=== PATIENT | male | born 1950 | race Caucasian/White ===

== ENCOUNTER 2020-04-17 12:09 | Outpatient (REF) | payer MEDICARE, SELFPAY ==
[2020-04-17 13:36] LABS: MANUAL DIFF FLAG NO
[2020-04-17 13:40] LABS: Basophils Absolute Auto 0.1 X10*3/uL (0.0-0.2); Basophils Percent Auto 0.6 % (0-2); Eosinophils Absolute Auto 0.2 X10*3/uL (0.0-0.4); Eosinophils Percent Auto 2.7 % (0-4); Hematocrit 39.5 % (42-52); Hemoglobin 12.6 g/dl (14.0-18.0); Imm Gran Abs Auto 0.02 X10*3/uL (0.00-0.03); Imm Gran Pct Auto 0.3 % (0.0-0.4); Lymphocytes Absolute Auto 1.8 X10*3/uL (1.2-4.9); Lymphocytes Percent Auto 22.8 % (20-40); Mean Corpuscular HGB Conc 31.9 g/dl (31.0-36.0); Mean Corpuscular Hemoglobin 28.6 pg (27.0-33.0); Mean Corpuscular Volume 89.6 fL (80-98); Mean Platelet Volume 9.4 fL (9.4-12.4); Monocytes Absolute Auto 0.6 X10*3/uL (0.1-1.2); Monocytes Percent Auto 7.6 % (2-11); Neutrophils Absolute Auto 5.1 X10*3/uL (2.0-8.3); Platelet Count 390 X10*3/uL (160-400); Red Blood Count 4.41 X10*6/uL (4.60-5.80); Red Cell Distribution Width 13.6 % (11.0-16.0); White Blood Count 7.8 X10*3/uL (4.8-10.8)
[2020-04-17 14:24] LABS: Estimated Average Glucose 134 mg/dL; Hemoglobin A1C 151.2091 umol/L; Hemoglobin A1c % 6.3 %
[2020-04-17 14:28] LABS: Creatinine Urine 51.96 mg/dL; Microalbum/Creatinine Ratio Ur 232.8 ug/mg cr
[2020-04-17 15:48] LABS: Alanine Aminotransferase 14 U/L (0-40); Albumin Level 4.3 g/dL (3.5-5.0); Alkaline Phosphatase 87 U/L (39-117); Anion Gap 17 (12-20); Aspartate Amino Transferase 20 U/L (5-37); Bilirubin Total 0.6 mg/dL (0.0-1.0); Blood Urea Nitrogen 47 mg/dL (9-16); Calcium 9.1 mg/dL (8.4-10.2); Carbon Dioxide 18 mmol/L (22-29); Chloride 105 mmol/L (96-108); Cholesterol 79 mg/dL; Estimated Glomerular Filt Rate 56; Glucose Random 136 mg/dL (60-115); Potassium 5.3 mmol/l (3.3-5.1); Sodium 135 mmol/L (135-145)
[2020-04-17 16:11] LABS: Prostate Specific Antigen 8.03 ng/mL (<0.05-4.0); Thyroid Stimulating Hormone 1.03 mIU/mL (0.32-4.0)
== END 2020-04-17 12:10 | disposition home or self-care (01) ==
LOC: HO.10HDL 12:09
PROVIDERS: Visit Provider Internal Medicine
DX: E11.9 Type 2 diabetes mellitus without complications (principal); I10 Essential (primary) hypertension; R53.83 Other fatigue; R63.4 Abnormal weight loss; G20 Parkinson's disease
CPT/HCPCS: 36415; 80053; 82043; 82465; 83036; 84153; 84443; 85025

== ENCOUNTER 2020-04-26 14:08 | Outpatient (REF) | payer MEDICARE, SELFPAY | END 2020-04-26 14:09 | disposition home or self-care (01) | LOC: HO.LNP 14:08 | PROVIDERS: Visit Provider Internal Medicine | DX: Z20.828 Contact with and (suspected) exposure to other viral communicable diseases (principal) | CPT/HCPCS: U0003 ==

== ENCOUNTER → 2020-06-06 10:34 | Outpatient (BNVA) | payer MEDICARE, SELFPAY | PROVIDERS: PCP Internal Medicine; Visit Provider Urology | DX: R33.8 Other retention of urine (principal); C61 Malignant neoplasm of prostate | CPT/HCPCS: 51702; 99212 ==

== ENCOUNTER 2020-06-26 10:37 | Outpatient (REF) | payer MEDICARE, SELFPAY ==
[2020-06-26 13:41] LABS: MANUAL DIFF FLAG NO
[2020-06-26 13:51] LABS: Basophils Percent Auto 0.4 % (0-2); Eosinophils Absolute Auto 0.4 X10*3/uL (0.0-0.4); Eosinophils Percent Auto 4.4 % (0-4); Hematocrit 40.5 % (42-52); Hemoglobin 12.9 g/dl (14.0-18.0); Imm Gran Abs Auto 0.03 X10*3/uL (0.00-0.03); Imm Gran Pct Auto 0.3 % (0.0-0.4); Lymphocytes Absolute Auto 1.7 X10*3/uL (1.2-4.9); Lymphocytes Percent Auto 18.9 % (20-40); Mean Corpuscular HGB Conc 31.9 g/dl (31.0-36.0); Mean Corpuscular Hemoglobin 29.1 pg (27.0-33.0); Mean Corpuscular Volume 91.4 fL (80-98); Mean Platelet Volume 9.9 fL (9.4-12.4); Monocytes Absolute Auto 0.8 X10*3/uL (0.1-1.2); Monocytes Percent Auto 8.2 % (2-11); Neutrophils Absolute Auto 6.2 X10*3/uL (2.0-8.3); Neutrophils Percent Auto 67.8 % (45-73); Platelet Count 329 X10*3/uL (160-400); Red Blood Count 4.43 X10*6/uL (4.60-5.80); Red Cell Distribution Width 13.5 % (11.0-16.0); White Blood Count 9.1 X10*3/uL (4.8-10.8)
[2020-06-26 13:55] LABS: Estimated Average Glucose 120 mg/dL; Hemoglobin A1c % 5.8 %
[2020-06-26 14:13] LABS: Alanine Aminotransferase 9 U/L (0-40); Alkaline Phosphatase 119 U/L (39-117); Anion Gap 16 (12-20); Aspartate Amino Transferase 11 U/L (5-37); Bilirubin Total 0.4 mg/dL (0.0-1.0); Blood Urea Nitrogen 39 mg/dL (9-16); C Reactive Protein 0.64 mg/dL (< or = 0.50); Calcium 9.4 mg/dL (8.4-10.2); Carbon Dioxide 25 mmol/L (22-29); Chloride 103 mmol/L (96-108); Estimated Glomerular Filt Rate 55; Glucose Random 194 mg/dL (60-115); Potassium 4.8 mmol/l (3.3-5.1); Sodium 139 mmol/L (135-145); Total Protein 7.2 g/dL (6.5-8.0)
== END 2020-06-26 10:38 | disposition home or self-care (01) ==
LOC: HO.10HDL 10:37
PROVIDERS: Visit Provider Internal Medicine
DX: E11.22 Type 2 diabetes mellitus with diabetic chronic kidney disease (principal); I12.9 Hypertensive chronic kidney disease with stage 1 through stage 4 chronic kidney disease, or unspecified chronic kidney disease; N18.9 Chronic kidney disease, unspecified; G20 Parkinson's disease; M54.9 Dorsalgia, unspecified
CPT/HCPCS: 36415; 80053; 83036; 85025; 86140

== ENCOUNTER → 2020-08-15 15:45 | Outpatient (BNVA) | payer MEDICARE, SELFPAY | PROVIDERS: PCP Internal Medicine; Visit Provider Urology | DX: Z13.89 Encounter for screening for other disorder (principal) | CPT/HCPCS: Q3014 ==

== ENCOUNTER 2020-08-20 11:08 | Outpatient (REF) | payer MEDICARE, SELFPAY ==
[2020-08-20 12:40] LABS: Glucose Urine UA NEG (NEG); Leukocyte Esterase Urine 3+ (NEG); Nitrite Urine POS (NEG); PH 5.5 (5.0-8.0); UACC Culture Trigger YES; Urine Blood 2+ (NEG); Urine Ketones NEG (NEG); Urine Protein 2+ MG/DL (NEG-TRACE)
[2020-08-20 12:42] LABS: Appearance Urine CLOUDY; Color Urine YELLOW
[2020-08-20 13:07] LABS: Bacteria Urine 2+ /LPF
[2020-08-20 13:13] LABS: Prostate Specific Antigen 12.46 ng/mL (<0.05-4.0)
== END 2020-08-20 11:09 | disposition home or self-care (01) ==
LOC: HO.10HDL 11:08
PROVIDERS: Absent Provider Internal Medicine; Visit Provider Urology
DX: C61 Malignant neoplasm of prostate (principal); N13.8 Other obstructive and reflux uropathy; N40.1 Benign prostatic hyperplasia with lower urinary tract symptoms; R30.0 Dysuria
CPT/HCPCS: 36415; 81001; 81003; 84153; 87086; 87088; 87186

== ENCOUNTER 2020-09-20 14:59 | Outpatient (REF) | payer MEDICARE, SELFPAY ==
[2020-09-20 16:02] LABS: MANUAL DIFF FLAG NO
[2020-09-20 16:06] LABS: Basophils Absolute Auto 0.1 X10*3/uL (0.0-0.2); Basophils Percent Auto 0.5 % (0-2); Eosinophils Absolute Auto 0.3 X10*3/uL (0.0-0.4); Eosinophils Percent Auto 2.7 % (0-4); Hematocrit 43.2 % (42-52); Hemoglobin 13.9 g/dl (14.0-18.0); Imm Gran Abs Auto 0.04 X10*3/uL (0.00-0.03); Imm Gran Pct Auto 0.4 % (0.0-0.4); Lymphocytes Absolute Auto 1.8 X10*3/uL (1.2-4.9); Lymphocytes Percent Auto 15.6 % (20-40); Mean Corpuscular HGB Conc 32.2 g/dl (31.0-36.0); Mean Corpuscular Hemoglobin 28.8 pg (27.0-33.0); Mean Corpuscular Volume 89.4 fL (80-98); Mean Platelet Volume 9.4 fL (9.4-12.4); Monocytes Absolute Auto 0.8 X10*3/uL (0.1-1.2); Monocytes Percent Auto 7.1 % (2-11); Neutrophils Absolute Auto 8.3 X10*3/uL (2.0-8.3); Neutrophils Percent Auto 73.7 % (45-73); Platelet Count 309 X10*3/uL (160-400); Red Blood Count 4.83 X10*6/uL (4.60-5.80); Red Cell Distribution Width 13.2 % (11.0-16.0); White Blood Count 11.3 X10*3/uL (4.8-10.8)
[2020-09-20 16:13] LABS: Estimated Average Glucose 146 mg/dL; Hemoglobin A1c % 6.7 %
[2020-09-20 16:21] LABS: Glucose Urine UA NEG (NEG); Leukocyte Esterase Urine 1+ (NEG); Nitrite Urine NEG (NEG); Specific Gravity - Urine 1.025 (1.005-1.025); UACC Culture Trigger YES; Urine Blood 3+ (NEG); Urine Ketones NEG (NEG); Urine Protein 3+ MG/DL (NEG-TRACE)
[2020-09-20 16:25] LABS: Alanine Aminotransferase 9 U/L (0-40); Albumin Level 4.4 g/dL (3.5-5.0); Alkaline Phosphatase 108 U/L (39-117); Anion Gap 13 (12-20); Aspartate Amino Transferase 20 U/L (5-37); Bilirubin Total 0.8 mg/dL (0.0-1.0); Blood Urea Nitrogen 30 mg/dL (9-16); Calcium 9.6 mg/dL (8.4-10.2); Carbon Dioxide 26 mmol/L (22-29); Chloride 106 mmol/L (96-108); Estimated Glomerular Filt Rate 46; Glucose Random 177 mg/dL (60-115); Potassium 4.8 mmol/L (3.3-5.1); Sodium 140 mmol/L (135-145); Total Protein 7.7 g/dL (6.5-8.0)
[2020-09-20 16:42] LABS: Appearance Urine TURBID; Color Urine RED
[2020-09-20 16:44] LABS: Bacteria Urine 1+ /LPF; RBC Urine TNTC /HPF (0); Squamous Epithelial Cell Urine TRACE /LPF
[2020-09-20 16:47] LABS: Free T4 (Free Thyroxine) 0.95 ng/dL (0.71-1.85); Thyroid Stimulating Hormone 1.04 uIU/mL (0.32-4.0)
== END 2020-09-20 15:00 | disposition home or self-care (01) ==
LOC: HO.LAB 14:59
PROVIDERS: PCP Internal Medicine; Visit Provider Internal Medicine
DX: E11.9 Type 2 diabetes mellitus without complications (principal); G20 Parkinson's disease; R00.2 Palpitations
CPT/HCPCS: 36415; 80053; 81001; 81003; 83036; 84439; 84443; 85025; 87086; 87088; 87186

== ENCOUNTER 2020-11-15 15:19 | Outpatient (REF) | payer MEDICARE, SELFPAY ==
[2020-11-15 17:40] LABS: PSA,Total (Free>4and<10) 4.28 ng/mL (0.00-4.00)
[2020-11-18 11:22] LABS: Free Prostate Spec Ag 0.3 ng/mL; Percent Free Prostate Spec Ag 8 % (calc) (>25); Prostate Specific Ag Total 3.7 ng/mL (< OR = 4.0)
== END 2020-11-15 15:20 | disposition home or self-care (01) ==
LOC: HO.LAB 15:19
PROVIDERS: PCP Internal Medicine; Visit Provider Urology
DX: Z12.5 Encounter for screening for malignant neoplasm of prostate (principal); C61 Malignant neoplasm of prostate; N40.1 Benign prostatic hyperplasia with lower urinary tract symptoms; N13.8 Other obstructive and reflux uropathy
CPT/HCPCS: 36415; 84153; 84154

== ENCOUNTER 2020-11-20 14:29 | Outpatient (REF) | payer MEDICARE, SELFPAY ==
--- NOTE | ~2020-11-20 | XR_ITS ---
EXAMINATION: XR SHOULDER, RIGHT CLINICAL INFORMATION: Right shoulder pain. COMPARISON: None TECHNIQUE: AP external rotation, Grashey, scapular Y, and axillary views of the right shoulder. FINDINGS: There is mild reduction in the right AC and glenohumeral joint space with periarticular spurring and AC joint is noted. No visible acute fracture, dislocation or subluxation seen. XR/XR shoulder RT min 2V IMPRESSION: Mild degenerative changes right AC and glenohumeral joint space. No visible acute fracture or dislocation seen.
== END 2020-11-20 14:30 | disposition home or self-care (01) ==
LOC: HO.XRAY 14:29
PROVIDERS: Absent Provider Internal Medicine; PCP Internal Medicine; Visit Provider Urology
DX: M25.511 Pain in right shoulder (principal); C61 Malignant neoplasm of prostate; N40.1 Benign prostatic hyperplasia with lower urinary tract symptoms; N13.8 Other obstructive and reflux uropathy
CPT/HCPCS: 73030; 99212

== ENCOUNTER 2021-01-02 14:01 | Outpatient (REF) | payer MEDICARE, SELFPAY | END 2021-01-02 14:02 | disposition home or self-care (01) | LOC: HO.LAB 14:01 | PROVIDERS: PCP Internal Medicine; Visit Provider Internal Medicine | DX: Z13.89 Encounter for screening for other disorder (principal) ==

== ENCOUNTER 2021-01-05 10:00 | Outpatient (REF) | payer MEDICARE, SELFPAY ==
[2021-01-06 11:44] LABS: Glucose Urine UA NEG (NEG); Leukocyte Esterase Urine 2+ (NEG); Nitrite Urine POS (NEG); Specific Gravity - Urine 1.015 (1.005-1.025); Urine Blood 1+ (NEG); Urine Ketones NEG (NEG); Urine Protein 2+ MG/DL (NEG-TRACE)
[2021-01-06 12:15] LABS: Appearance Urine CLEAR; Color Urine STRAW
[2021-01-06 13:05] LABS: Bacteria Urine 1+ /LPF; WBC Urine TNTC /HPF (0-4)
== END 2021-01-05 10:01 | disposition home or self-care (01) ==
LOC: HO.LNP 10:00
PROVIDERS: Visit Provider Internal Medicine
DX: R30.0 Dysuria (principal)
CPT/HCPCS: 81001; 81003; 87086; 87147; 87186

== ENCOUNTER → 2021-01-10 10:27 | Outpatient (BNVA) | payer MEDICARE, SELFPAY | PROVIDERS: PCP Internal Medicine; Visit Provider Urology | CPT/HCPCS: Q3014 ==

== ENCOUNTER → 2021-02-11 10:49 | Outpatient (REF) | payer MEDICARE, SELFPAY ==
--- NOTE | ~2021-02-11 | NM_ITS ---
EXAMINATION: NM BONE SCAN OF THE WHOLE BODY CLINICAL INFORMATION: Malignant neoplasm of prostate. Prostate removed 4 years ago. COMPARISON: No previous bone scan is available for comparison. Radiographs of the right shoulder dated 11/20/2020 and of the right hip dated 10/27/2018 are the most recent radiographs available for comparison. CT of the lumbar spine dated 05/13/2018 is available for comparison. TECHNIQUE: Multiple gamma scintillation camera images of the whole body were performed 3 hours following the intravenous administration of 30 mCi Tc-99m MDP. FINDINGS: In the head, no significant abnormalities are present. In the thoracic cage and upper extremities, there is mildly increased activity in the acromioclavicular and sternoclavicular joints bilaterally and in a few periarticular foci in both hands and wrists. Some residual radiopharmaceutical at the injection site in the left forearm is noted. In the spine, there is a minimal thoracolumbar scoliosis with lumbar convexity to the left. There is very mildly increased activity in the lower lumbar spine at the L4-L5 level. This is at the level of spinal fusion hardware partially visualized on radiographs of the right hip dated 10/27/2018. In the pelvis, no significant abnormalities are present. In the lower extremities, there is minimally increased activity in the patellar and medial compartments of both knees and in faint foci in both feet. No other definite bony abnormalities are noted. The urinary bladder and faint visualization of both kidneys are noted. Some left-sided hydronephrosis and prominence of the left ureter is present. NM/NM bone scan whole body IMPRESSION: A few mild nonspecific abnormalities are noted as described above and these are all likely arthritic or traumatic in etiology. None of these abnormalities is strongly suspicious for metastatic disease.
== END ==
LOC: HO.NUCMED 10:49
PROVIDERS: Visit Provider Urology
DX: C61 Malignant neoplasm of prostate (principal); C79.51 Secondary malignant neoplasm of bone
CPT/HCPCS: 51701; 51702; 78306; 99212; A9503

== ENCOUNTER → 2021-02-18 11:03 | Outpatient (BNVA) | payer MEDICARE, SELFPAY | PROVIDERS: PCP Internal Medicine; Visit Provider Urology | DX: N40.1 Benign prostatic hyperplasia with lower urinary tract symptoms (principal); N13.8 Other obstructive and reflux uropathy; C61 Malignant neoplasm of prostate | CPT/HCPCS: 96402; 99212; J9217 ==

== ENCOUNTER → 2021-03-06 11:23 | Outpatient (BNVA) | payer MEDICARE, SELFPAY | PROVIDERS: PCP Internal Medicine; Visit Provider Urology | DX: C61 Malignant neoplasm of prostate (principal); N31.9 Neuromuscular dysfunction of bladder, unspecified | CPT/HCPCS: 51701; 99212 ==

== ENCOUNTER → 2021-03-19 12:34 | Outpatient (BNVA) | payer MEDICARE, SELFPAY | PROVIDERS: PCP Internal Medicine; Visit Provider Urology | DX: N31.9 Neuromuscular dysfunction of bladder, unspecified (principal); C61 Malignant neoplasm of prostate | CPT/HCPCS: Q3014 ==

== ENCOUNTER → 2021-08-15 14:16 | Outpatient (BNVA) | payer MEDICARE, SELFPAY | PROVIDERS: PCP Internal Medicine; Visit Provider Urology | DX: N31.9 Neuromuscular dysfunction of bladder, unspecified (principal); C61 Malignant neoplasm of prostate | CPT/HCPCS: 99212 ==

== ENCOUNTER 2022-03-17 11:50 | Outpatient (REF) | payer MEDICARE, SELFPAY ==
[2022-03-17 13:44] LABS: MANUAL DIFF FLAG NO
[2022-03-17 14:03] LABS: Basophils Absolute Auto 0.1 X10*3/uL (0.0-0.2); Basophils Percent Auto 0.4 % (0-2); Eosinophils Absolute Auto 0.5 X10*3/uL (0.0-0.4); Eosinophils Percent Auto 3.7 % (0-4); Hematocrit 42.7 % (42.0-52.0); Hemoglobin 14.1 g/dl (14.0-18.0); Imm Gran Abs Auto 0.07 X10*3/uL (0.00-0.03); Imm Gran Pct Auto 0.6 % (0.0-0.4); Lymphocytes Absolute Auto 2.2 X10*3/uL (1.2-4.9); Lymphocytes Percent Auto 18.4 % (20-40); Mean Corpuscular Hemoglobin 29.5 pg (27.0-33.0); Mean Corpuscular Volume 89.3 fL (80.0-98.0); Monocytes Absolute Auto 0.8 X10*3/uL (0.1-1.2); Monocytes Percent Auto 6.7 % (2-11); Neutrophils Absolute Auto 8.6 x10*3/uL (2.0-8.3); Neutrophils Percent Auto 70.2 % (45-73); Platelet Count 418 X10*3/uL (160-400); Red Blood Count 4.78 X10*6/uL (4.60-5.80); Red Cell Distribution Width 12.5 % (11.0-16.0); White Blood Count 12.2 X10*3/uL (4.8-10.8)
[2022-03-17 14:14] LABS: Estimated Average Glucose 131 mg/dL; Hemoglobin A1c % 6.2 %
[2022-03-17 14:21] LABS: Alanine Aminotransferase 10 U/L (0-40); Albumin Level 4.4 g/dL (3.5-5.0); Alkaline Phosphatase 92 U/L (39-117); Anion Gap 21 (12-20); Aspartate Amino Transferase 16 U/L (5-37); Bilirubin Total 0.5 mg/dL (0.0-1.0); Blood Urea Nitrogen 21 mg/dL (9-16); Calcium 10.4 mg/dL (8.4-10.2); Carbon Dioxide 22 mmol/L (22-29); Chloride 104 mmol/L (96-108); Cholesterol 127 mg/dL; Estimated Glomerular Filt Rate 45; Glucose Random 187 mg/dL (60-115); Sodium 142 mmol/L (135-145); Total Protein 7.6 g/dL (6.5-8.0)
[2022-03-17 14:42] LABS: Prostate Specific Antigen 1.11 ng/mL (<0.05-4.0)
== END 2022-03-17 11:51 | disposition home or self-care (01) ==
LOC: HO.10HDL 11:50
PROVIDERS: Visit Provider Internal Medicine
DX: Z12.5 Encounter for screening for malignant neoplasm of prostate (principal); E11.9 Type 2 diabetes mellitus without complications; N18.9 Chronic kidney disease, unspecified; G20 Parkinson's disease; I48.91 Unspecified atrial fibrillation
CPT/HCPCS: 36415; 80053; 82465; 83036; 84153; 85025

== ENCOUNTER 2023-03-30 10:00 | Outpatient (REF) | payer MEDICARE, SELFPAY ==
[2023-03-31 13:15] LABS: Appearance Urine Turbid; Color Urine Yellow; Glucose Urine UA >=1000 mg/dL (Negative); Leukocyte Esterase Urine Moderate (2+) (Negative); Nitrite Urine Negative (Negative); Specific Gravity - Urine 1.025 (1.005-1.025); UMIC TRIGGER UACC YES; Urine Blood Large (3+) (Negative); Urine Ketones Negative (Negative); Urine Protein 100 (2+) mg/dL (Neg-Trace)
[2023-03-31 13:27] LABS: Bacteria Urine 4+ (None Seen); Hyaline Casts Urine 0-2 /LPF (0-2); UACC Culture Trigger YES; WBC Clumps Urine Present; WBC Urine >50 /HPF (0-5)
== END 2023-03-30 10:01 | disposition home or self-care (01) ==
LOC: HO.HSH1N 10:00
PROVIDERS: Visit Provider Internal Medicine
DX: R30.0 Dysuria (principal)
CPT/HCPCS: 81001; 87086; 87088; 87186

== ENCOUNTER 2023-03-30 15:03 | Outpatient (REF) | payer MEDICARE, SELFPAY | END 2023-03-30 15:04 | disposition home or self-care (01) | LOC: HO.LNP 15:03 | PROVIDERS: Visit Provider Internal Medicine | DX: Z13.89 Encounter for screening for other disorder (principal) ==

== ENCOUNTER 2024-10-04 10:59 | Outpatient (AMB) | payer MEDICARE, SELFPAY ==
--- NOTE | 2024-10-04 11:00 | MHC.PC.OV ---
Vital Signs 10/04/24 11:19 Height 5 ft 9 in Weight 183 lb BMI 27.0 BP 130/70 Blood Pressure Location Rt brachial Position Sitting Pulse 66 Pulse Source Pulse Oximeter Temp 97.6 F Temp Source Axillary Pulse Oximetry (%) 96 Oxygen Delivery Method Room Air Intake Visit Reasons: Routine - see comments [employer] Required: No Accompanied by: Self / Same As Patient Allergies procaine [From NOVOCAIN] Allergy (Unknown, Verified 10/10/24 19:56) JITTERY Medication List - Last Reconciled 10/10/24 by Sylvester Beltran MD amlodipine 5 mg PO DAILY atorvastatin 80 mg PO BEDTIME blood sugar diagnostic (StrongViewuch Ultra Test strips) As directed carbidopa-levodopa 25-100 mg tabs PO carvedilol 6.25 mg PO BID clopidogrel (Plavix) 75 mg PO DAILY empagliflozin (Jardiance) 25 mg PO DAILY finasteride 5 mg PO DAILY 90 days glipizide 5 mg PO DAILY insulin glargine (Basaglar KwikPen U-100 Insulin) [facility] miscellaneous medical supply ([facility] Incontin Clamp) As directed Tobacco use date assessed: 10/04/24 Fall risk assessment: No Falls in past year Last assessed Fall Risk: 10/04/24 Dental Screening Dental Screen Date: 10/04/24 Did you have a dental visit in the last 12 months?: Yes Did you have a dental problem in the last 6 months where you did not have access to dental care?: No PFSH Medical History Prostate cancer Tubular adenoma Sleep apnea CVA (cerebral vascular accident) Parkinson disease PTSD (post-traumatic stress disorder) HTN (hypertension) Prostate cancer Surgical History History of colonoscopy (~10/18/14) History of tonsillectomy History of back surgery Family History Father Prostate cancer Mother Cancer of ileocecal valve Paternal Grandmother Colon cancer Maternal Aunt Small intestine cancer FH: uterine cancer Pancreatic cancer Other Arterial stenosis Social History Housing: Assisted Living Facility Patient Tobacco Use Status: Former Tobacco user e-Cigarette/Vaping Use: Former Use service: No Current occupational status: retired Cognitive needs: No Hearing needs: No Vision needs: Yes (rx glasses) Questionnaire PHQ-9 Over the last 2 weeks, how often have you been bothered by any of the following problems? 1. Little interest or pleasure in doing things: not at all 2. Feeling down, depressed, or hopeless: not at all 3. Trouble falling or staying asleep, or sleeping too much: not at all 4. Feeling tired or having little energy: not at all 5. Poor appetite or overeating: not at all 6. Feeling bad about yourself - or that you are a failure or have let yourself or your family down: not at all 7. Trouble concentrating on things, such as reading the newspaper or watching television: not at all 8. Moving or speaking so slowly that other people could have noticed. Or the opposite - being so fidgety or restless that you have been moving around a lot more than usual: not at all 9. Thoughts that you would be better off or of hurting yourself in some way: not at all Total score: 0 Source: Developed by Drs. Dillan Olmedo, Xin Kelly, Bo Krishnan and colleagues, with an educational garfield from [employer]. Thrive Questionnaire Date Thrive assessed: 10/04/24 I am a: Patient Within the past 12 months, did the food you bought not last and you didn't have the money to get more?: Never true Within the past 12 months, did you worry whether your food would run out before you got money to buy more?: Never true Do you have trouble paying for medicines?: No Do you have trouble getting transportation to medical appointments?: No Do you have trouble paying your heating and electricity bill?: No Do you have trouble taking care of your child, family member or friend?: No Do you have trouble with day-to-day activities such as bathing, preparing meals, shopping, managing finances, etc.?: No Are you currently unemployed and looking for a job?: No Are you interested in more education?: No THRIVE Score: 0 AUDIT C Alcohol Use Questionnaire (AUDIT-C) 1. How often do you have a drink containing alcohol?: Monthly or less 2. How many drinks containing alcohol do you have on a typical day when you are drinking?: 1 or 2 3. How often do you have six or more drinks on one occasion?: Less than monthly Total Score: 2 Physical exam (Primary Care) Vital Signs: Last Vital Signs Temp 97.6 F 10/04/24 11:19 Pulse 66 10/04/24 11:19 BP 130/70 10/04/24 11:19 Pulse Ox 96 10/04/24 11:19 Oxygen Delivery Method Room Air 10/04/24 11:19 BMI result Body Mass Index 27.0 Tobacco/Smoking Status: Tobacco use Status Tobacco use date assessed 10/04/24 10/04/24 11:03 Patient Tobacco Use Status Former Tobacco user 10/04/24 11:34 e-Cigarette/Vaping Use Former Use 10/04/24 11:34 PHQ-9: PHQ-9 Score PHQ-9: Total score 0 10/04/24 11:34 Thrive Assessment: Date of Thrive Assessment Date Thrive assessed 10/04/24 10/04/24 11:03 Coding Level of Care Code New Pt Level 4 (72336) Complex EM visit Add On G2211 Diagnoses Loss of vision H54.7 Assessment & Plan Assessment & Plan (1) Loss of vision: Code(s): H54.7 - Unspecified visual loss Plan: History of Present Illness The patient is a 73-year-old male presenting with visual disturbances. He reports a sudden change in vision over the last three to four days, describing the experience as aracely to a decrease in screen contrast, with pastel color perception and reduced clarity. These changes have made reading difficult. He is scheduled for an eye examination in two weeks but expresses concern about the acuity of changes and potential underlying causes. The patient has established Parkinson's Disease, significantly affecting his mobility and requiring a wheelchair for long-distance movement. His medical history includes a stroke 4.5 years prior, resulting in persistent right-sided weakness and urinary incontinence managed with a catheter. The patient's diabetes mellitus is controlled with insulin, albeit with concerns regarding recent dosage increases despite stable blood sugar levels. Social History - Resides in assisted living, receiving three meals daily and weekly laundry services. - Previously worked in [employer] and [employer]. - No tobacco use in the last 30 years and denies current substance use. - Discusses dietary habits, including consistent breakfast choices and limited snacks. - Manages medications independently but expresses frustration with pharmacy practices. - Reports no family or children, not . Review of Systems - Neurological: Reports visual disturbances. - Musculoskeletal: Reports right-sided weakness from previous stroke. - Genitourinary: Reports urinary incontinence due to stroke. - Endocrine: Denies issues with blood glucose management beyond discussed insulin dosage. Physical Exam General: Cooperative and healthy appearing Nutritional Appearance: Well nourished Orientation/consciousness: Patient oriented x3 Limitations: No limitations Head: Normal to inspection General: Appearance normal, both eyes and all related structures Neck: Normal visual inspection Chest: Normal palpation of entire chest wall Respiratory: N ormal respiratory effort Neurology: Patient oriented x3, right arm is sketchy, right leg is very bad off, facial difference noted on the right side, sudden loss of vision with pastel colors and lack of clarity. Results Plan The patient will have an ophthalmologic evaluation expedited for newly developed visual disturbances. Parkinson's Disease management remains a priority, with mobility aid support continued. Insulin regimen to be monitored, with reassurance provided concerning current dosage adequacy. A review of medication management practices will be conducted to balance diabetes control and medication-related concerns. Patient was informed and verbally consented to the use of an ambient scribe for clinic note documentation during this visit. Discussion Notes During the visit, we discussed the sudden visual disturbances that the patient is experiencing. I will expedite an ophthalmologic evaluation, likely in [place], to assess potential etiologies due to the acute presentation. Emphasis was placed on the importance of maintaining current medication regimens, specifically insulin therapy, while continuing to evaluate the benefits and any adverse effects. The patient's preferences regarding pharmacy practices and medication management were noted and acknowledged. It was advised to maintain safety measures due to balance issues from Parkinson's and muscle weakness, regularly updating fall prevention guidance. Patient Instructions - Await a call for scheduling your eye examination. - Continue current insulin therapy as directed. - Report any further changes in vision immediately. - Use mobility aids for safety and injury prevention. - Follow dietary routines to support diabetes management. - Schedule transportation for upcoming medical appointments in advance. - Maintain medication regimen and report any adverse effects. Orders: Referrals Ophthalmology Referral Sylvester Beltran MD H54.7 - Unspecified visual loss Medications: Changed From insulin glargine (Basaglar KwikPen U-100 Insulin) 15 units (0.15 mL) subcut QAM 15 mL 3RF To insulin glargine (Basaglar KwikPen U-100 Insulin) 30 units subcut BRENDAM Ama Rice MD
[2024-10-04 11:19] VITALS: BP 130/70; PULSE 66; TEMP 36.4; O2SAT 96; BMI 27.0
--- OUTSIDE RECORDS SUMMARY | 2024-10-04 13:13 | XMS_ITS | Patient Health Record ---
[facility] Address [address] [place] [address] Care Team Providers Care [employer] Fabricator Name Role Phone Dieter Panad MD Primary Care Provider Alex Adams Unavailable [phone] Allergies Allergen (clinical drug ingredient) Drug/Non Drug Allergy documented on EMR Reaction Allergy Type Onset Date Status EPINEPHrine rapid heart rate, sweats Drug Allergy Inactive Novocain Unknown Drug Allergy Active Reason For Referral No Information Medications Medication SIG (Take, Route, Frequency, Duration) Notes Start Date End Date Status Extra Depth Orthopedic Shoes (1 Pair) with Customized Heat Molded Multidensity Innersoles (3 Pair) as directed Dx: NIDDM/Polyneuropathy (E11.42), Hammertoe Foot Deformity (M20.41,M20.42), Preulcerative Skin Lesion(s) (L85.1 Active zzzCompression Stockings 20-30mm Hg . . . for . 08/04/2013 Active amLODIPine Besylate Active clonazePAM bid Not-Takin g Lisinopril 40 MG 1 tablet Orally Once a day Not-Taking Ketoconazole 1 % Externally Ac tive Simvastatin 20 MG 1 tablet in the even ing Orally Once a day for 30 day(s) Active metFORMIN HCl ER 500 MG 1tab Orally Once a day Active Atorvastatin Calcium Active Plavix Not-Taking Levodopa Not-Taking glipiZIDE 10 MG 1 tablet Orally Twic e a day Active Carbidopa-Levodopa A ctive Clopidogrel Bisulfate Not-Taking Immunizations Vaccine Route Administration Date Status Comme nts COVID-19 Pfizer BioNTech Vaccine Unknown 09/07/2020 Administered COVID-19 Pfizer BioNTech Vaccine Unknown 09/28/2020 Administered 1st 08/31/2020 Influenza Unknown 02/20/2015 Administered Influenza Unknown 02/20/2015 Administered Influenza Unknown 03/14/2015 Administered Influenza Unknown 03/15/2017 Administered Influenza Unknown 02/18/2021 Administered Pneumococcal Unknown 05/01/2010 Administered Social History Tobacco Use: Social History Observation Description Date Details (start date - stop date) Never Smoker NA - NA Tobacco Use/Smoking Question Answer Notes Are you a: nonsmoker Additional Findings: Tobacco Non-User Current no n-smoker Alcohol Screen Question Answer Notes Did you have a drink containing alcohol in the p ast year? No Points 0 Interpretation Negative Tobacco use other than smoking: Question Answer Notes Are you an other tobacco user? No Problems Problem Type SNOMED Code ICD Code Onset Dates Problem Status W/U Status Risk Notes Problem Acquired hammer toe of right foot (7080607409188937 ) Other hammer toe(s) (acquired), right foot (M20.41) Active confirmed Problem Acquired hammer toe of left foot (5982675908923474 ) Other hammer toe(s) (acquired), left foot (M20.42) Active confirmed Problem Polyneuropathy due to type 2 diabetes mellitus (313784869) Type 2 diabetes mellitus with diabetic polyneuropathy (E11.42) Active confirmed Plan Of Treatment Pending Test Test Name Order Date Hemoglobin A1c 03/08/2015 87267-ZNFHOOW NAIL, 6 OR MORE 12/25/2014 47134-CYYDNYU NAIL, 6 OR MORE 03/08/2015 55144-CSNTKAY NAIL, 6 OR MORE 05/15/2014 28268-HXKIHYC NAIL, 6 OR MORE 08/10/2014 81180-QJOQPIX NAIL, 6 OR MORE 10/19/2014 25414-VJBGSNS NAIL, 6 OR MORE 09/20/2012 90384-XKZMRGJ NAIL, 6 OR MORE 12/20/2012 81307-XXONXRE NAIL, 6 OR MORE 03/02/2013 73234-DSPJTIW NAIL, 6 OR MORE 05/22/2013 00170-BXALERP NAIL, 6 OR MORE 08/04/2013 45792-WNNRHMK NAIL, 6 OR MORE 10/09/2013 16882-MJLRYTY NAIL, 6 OR MORE 12/11/2013 38097-QFZHEHE NAIL, 6 OR MORE 03/06/2014 49029-HWWIBQC NAIL, 6 OR MORE 08/22/2015 07932-KNWHHYD NAIL, 6 OR MORE 11/08/2015 92786-MXUJKWC NAIL, 6 OR MORE 01/12/2017 13322-EFQUMJU NAIL, 6 OR MORE 09/14/2017 17146-NZAIGQC NAIL, 6 OR MORE 12/14/2017 92862-WVGGERZ NAIL, 6 OR MORE 11/25/2018 37567-EGKHWUT NAIL, 6 OR MORE 03/03/2019 42590-DQWURYN NAIL, 6 OR MORE 05/19/2019 18300-WAYZXJF NAIL, 6 OR MORE 10/31/2020 85131-WPXBHEA NAIL, 6 OR MORE 02/18/2021 39588-QCTAZZQ NAIL, 6 OR MORE 11/20/2021 99799-Vkfhsjfo Plate 10/31/2020 00174-Oorznrhd Plate 08/10/2014 30849-Qrcuwegb Plate 12/14/2017 04999-Sbpjxgfb Plate 08/22/2015 36885-Boidalqb Plate 03/06/2014 18781-Mmafjglt Plate 10/09/2013 33938-Cratdbgd Plate 10/19/2014 35049-[place] Plate 12/25/2014 82451-Xhioyvhc Plate 03/08/2015 34723-Pmdnopgz Plate Each Additional 78320-Pavmtvcp Plate Each Additional 43161 I&D ABSCESS- SIMPLE,SINGLE 015 32831-JIXD SKIN LESIONS, 2 TO 4 12/26/19 15 28841-OIQB SKIN LESIONS, 2 TO 4 03/08/20 15 13858-VFIO SKIN LESIONS, 2 TO 4 10/20/19 15 65782-PVGF SKIN LESIONS, 2 TO 4 08/10/19 15 93177-FVNJ SKIN LESIONS, 2 TO 4 05/15/20 14 82326-TCCU SKIN LESIONS, 2 TO 4 10/10/19 14 77352-AQNA SKIN LESIONS, 2 TO 4 12/12/19 14 57187-EZYR SKIN LESIONS, 2 TO 4 09/21/19 13 69558-XCOY SKIN LESIONS, 2 TO 4 03/06/20 14 97796-YEOB SKIN LESIONS, 2 TO 4 08/04/19 14 12036-QXDE SKIN LESIONS, 2 TO 4 05/22/20 13 52550-OHZZ SKIN LESIONS, 2 TO 4 03/02/20 13 85672-ZRSM SKIN LESIONS, 2 TO 4 12/21/19 13 09450-FEPD SKIN LESIONS, 2 TO 4 08/22/19 16 31796-YWRV SKIN LESIONS, 2 TO 4 09/15/19 18 55791-VIII SKIN LESIONS, 2 TO 4 11/08/19 16 08879-VDST SKIN LESIONS, 2 TO 4 01/13/20 17 46326-TTNK SKIN LESIONS, 2 TO 4 12/15/19 18 35752-OODU SKIN LESIONS, 2 TO 4 03/03/20 19 75200-USQJ SKIN LESIONS, 2 TO 4 11/26/19 19 38807-KZGE SKIN LESIONS, 2 TO 4 02/19/20 21 33364-QWJY SKIN LESIONS, 2 TO 4 11/01/19 21 99936-XRFQ SKIN LESIONS, 2 TO 4 05/19/20 19 44276-TXXL SKIN LESIONS, 2 TO 4 11/21/19 22 06070-Xmzc. Subungual Hematoma 1 Insurance Providers Payer Name Payer Address Payer Phone Subscriber Number Group Number Insured Name Patient Relationship to Insured Coverage Start Date Coverage End Date Medicare National Govt S[employer] [address] [place] [address] [id number] Jamil Catalan Jr Self - patient is the insured 0 [employer] [address] [place] [address] [id number] Jamil Catalan Jr Self - patient is the insured 5 Medical (General) History Medical History History ICD Code back, hip, knee pain chicken pox Diabetic hypercholesterolemia high blood pressure macular degeneration measles mumps neuropathy Parkinsons prostate cancer raynauds syndrome Surgical History Surgery Date(Month/Year) LS-S1 07/1988 L3-L4 11/2007 tooth extraction 02/2014 spinal fusion 07/15/18 Hospitalization History Reason Date(Month/Year) PSA biopsy 04/2013 [facility] Spinal stenosis 05/2016 [facility] [place] 11/26/2017 [facility] 11/27/17
--- OUTSIDE RECORDS SUMMARY | 2024-10-04 13:13 | XMS_ITS | Clinical Summary ---
Author Organization [facility] [employer] Address [address] [place] [address] Phone Care Team Providers Care Brand Ambassador Promotional Model Name Role Phone Dieter Panda MD Primary Care Provider [phone] Allergies No known active allergies Medications amLODIPine (NORVASC) 2.5 mg tablet Take 1 Tablet by mouth daily. Active aspirin 81 mg EC tablet Take 1 Tablet by mouth daily. Active atorvastatin (LIPITOR) 80 mg tablet Take 1 Tablet by mouth daily. Active carbidopa-levodo pa (SINEMET) 25-100 mg per tablet Take 1 Tablet by mouth 4 times daily. Active carvediloL (COREG) 6.25 mg tablet Take 1 Tablet by mouth 2 times daily (with meals). Active clopidogreL (PLAVIX) 75 mg tablet Take 1 Tablet by mouth daily. Active empagliflozin (Jardiance) 10 mg tablet Active finasteride (PROSCAR) 5 mg tablet Take 1 Tablet by mouth daily. Active glipiZIDE (GLUCOTROL) 5 mg tablet Take 1 Tablet by mouth 2 times daily (before meals). Active glucose blood (Blood Glucose Test) test strip by In Vitro route. Active insulin glargine,hum.rec .anlog (INSULIN GLARGINE SUBQ) Inject into the skin daily. Active OXYBUTYNIN CHLORIDE ORAL Take 10 mg by mouth daily. Active SITagliptin phosphate (Januvia) 100 mg tablet Take 1 Tablet by mouth 2 times daily. Active dulaglutide (Trulicity) 1.5 mg/0.5 mL pen injector injection Inject 0.5 mL (1.5 mg total) under the skin every 7 (seven) days. Active Active Problems Problem Noted Date Diagnosed Date Bradycardia 02/23/2024 Chest pain 02/23/2024 CVA (cerebral vascular accident) ([facility] V24, [facility] V28) 02/23/2024 Multiple vessel coronary artery disease 02/23/20 24 Assessment & Plan (06/21/2024 2:20 PM EST): See NSTEMI plan. Orders: Lipid panel; Future NSTEMI (non-ST elevated myoc ardial infarction) ([facility] V24, [facility] V28) 02/23/2024 Assessment & Plan (06/21/2024 2:20 PM EST): Patient with NSTEMI in January 2024 with PCI of the ramus intermediate artery. He is to continue aspirin indefinitely and Plavix for a year postintervention. Today he denies any chest pain or shortness of breath. He continues on aspirin, Plavix, atorvastatin, amlodipine, carvedilol and Jardiance. Patient advised to seek emergency medical attention by calling 911 if they were to develop severe dyspnea, chest pain that did not resolve with rest or nitroglycerin, or if they were to faint. Orders: Hemoglobin A1c; Future Hemoglobin A1c; Future Essential hypertension 02/21/2024 Assessment & Plan (06/21/2024 2:20 PM EST): Blood pressure is well-controlled today, 124/76, continue on current antihypertensive medication regimen. PAF (paroxysmal atrial fibri llation) ([facility] V24, [facility] V28) 02/21/2024 Assessment & Plan (06/21/2024 2:20 PM EST): Patient with question of paroxysmal atrial fibrillation, it was noted in his chart in his past with no evidence of this. As outlined above, he had previous outpatient testing that did not indicate any atrial fibrillation nor was it noted during his hospitalization. With his vague complaints of a sensation occurring in his chest approximately weekly and history of CVA, will have him complete a 30-day monitor to assess for any evidence of atrial fibrillation. If it is noted will restart anticoagulation. Orders: ECG 12 lead Cardiac event monitor; Future Palpitations 02/21/2024 Pure hypercholesterolemia, unspecified 4 Assessment & Plan (06/21/2024 2:20 PM EST): Continue on atorvastatin 80 mg daily. Will update lipid panel. 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, not elsewhere classified Parkinson's disease with dys kinesia, without mention of fluctuations ([facility] V24, [facility] V28) DX:Parkinson's disease with dyskinesia, without mention of fluctuations ([facility]) Impacted cerumen of left ear DX: Impacted cerumen of left ear Unspecified urinary incontinence DX:Unspecified urinary incontinence Chronic kidney disease, stag e 3 ([facility] V24, [facility] V28) DX:Chronic kidney disease, s tage 3 ([facility]) Unilateral primary osteoarth ritis, right hip DX:Unilateral primary osteoa rthritis, right hip Trochanteric bursitis DX:Trochan teric bursitis Spinal stenosis, lumbar rob on without neurogenic claudication DX:Spinal stenosis, lumbar r egion without neurogenic claudication Urinary tract infection, sit e not specified DX:Urinary tract infection, site not specified Flexural eczema DX:Flexural ecze ma Seborrhea capitis DX:Seborrhea c apitis Obesity due to excess calories D X:Obesity due to excess calories Precordial pain DX:Precordial pa in Spinal stenosis, cervical region DX:Spinal stenosis, cervical region Constipation DX:Constipation Low back pain DX:Low back pain Type 2 diabetes mellitus wit hout complications ([facility] V24, [facility] V28) DX:Type 2 oh betes mellitus without complications ([facility]) Malignant neoplasm of prosta te ([facility] V24, [facility] V28) DX:Malignant neoplasm of pro state ([facility]) Idiopathic progressive neuropathy DX:Idiopathic progressive neuropathy Status post insertion of ynes g eluting coronary artery stent DX:Status post insertion of drug eluting coronary artery stent Diabetes ([facility] V24, [facility] V28) DX:Diabetes ([facility]) Social History Tobacco Use Types Packs/Day Years Used Date Smoking Tobacco: Never Smokeless Tobacco: Never Alcohol Use Standard Drinks/Week Comments Never 0 (1 standard drink = 0.6 oz pur e alcohol) Sex and Gender Information Value Date Recorded Sex Assigned at Not on file Legal Sex Male 7:57 AM EST Gender Identity Not on file Sexual Orientation Not on file Obstetrics History Last Filed Vital Signs Vital Sign Reading Time Taken Comments Blood Pressure 124/76 06/21/2024 12:41 PM EST Pulse 75 06/21/2024 12:41 PM EST Temperature - - Respiratory Rate - - Oxygen Saturation 94% 06/21/2024 12:41 PM EST Inhaled Oxygen Concentration - - Weight 83 kg (183 lb) 06/21/2024 12:41 PM EST Height 182.9 cm (6') 06/21/2024 12:41 PM EST Body Mass Index 24.82 06/21/2024 12:41 PM EST Plan of Treatment Upcoming Encounters Date Type Department Care Team (Late st Contact Info) Description 10/30/2024 2:30 PM EDT Ancillary Procedure [facility] Cardiology [facility] [address] [place] [address] 11/14/2024 7:40 AM EDT Office Visit [facility] Cardiology [facility] [address] [place] [phone] Juliane Perea NP [address] [place] [address] [place] [address] Health Maintenance Due Date Last Done Comments Diabetes: Annual Foot Exam 12/17/1959 Diabetes: Annual Retina Eye Exam 12/17/1959 DTaP,Tdap,and Td Vaccines (1 - Tdap) 1968 Zoster Vaccines (1 of 2) 1968 RSV Immunization Adult Patients (1 - Risk 60-74 years 1-dose series) 2009 Pneumococcal Vaccine: 50+ Years (3 of 3 - PPSV23, PCV20 or PCV21) 05/26/2020 03/31/2020, 05/01/2010 Cholesterol Screening (Lipid Panel) 05/17/2022 Colorectal Cancer Screening: Colonoscopy 05/17/2022 Depression Screening 05/17/2022 Falls Risk Assessment 05/17/2022 Hepatitis C Screening 05/17/2022 Medicare Annual Wellness Visit 05/17/2022 Social Influencers of Health Screening 05/17/2022 Diabetes: Annual GFR (Glomerular Filtration Rate) 01/13/2023 01/13/2022, 07/12/2018 COVID-19 Vaccine ( season) 2024 10/20/2021, 03/28/2021, 09/28/2020, Additional history exists Hypertension/CHF/CAD Annual BMP Blood Test 03/26/2024 01/13/2022, 07/12/2018 Diabetes: Annual Urine Albumin-Creatinine Ratio (uACR) 06/21/2024 Diabetes: Blood Sugar Control Test (HGBA1C) 06/21/2024 Influenza Vaccine (Season Ended) 2025 06/18/2022, 02/18/2021, 03/31/2020, Additional history exists HIB Vaccines Aged Out No longer eligi ble based on patient's age to complete this topic HPV Vaccines Aged Out No longer eligi ble based on patient's age to complete this topic Hepatitis A Vaccines Aged Out No long er eligible based on patient's age to complete this topic Hepatitis B Vaccines Aged Out No long er eligible based on patient's age to complete this topic IPV Vaccines Aged Out No longer eligi ble based on patient's age to complete this topic MMR Vaccines Aged Out No longer eligi ble based on patient's age to complete this topic Meningococcal ACWY Vaccine Aged Out N o longer eligible based on patient's age to complete this topic Meningococcal B Vaccine Aged Out No l onger eligible based on patient's age to complete this topic RSV Immunization Patients Under 20 months Aged Out No longer eligible based on patient's age to complete this topic Varicella Vaccines Aged Out No longer eligible based on patient's age to complete this topic Insurance MEDICARE Advance Directives Documents on File Type Date Recorded 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
== END 2024-10-04 13:29 | disposition home or self-care (01) ==
LOC: HO.HMCHD 10:59
PROVIDERS: PCP Internal Medicine; Visit Provider Internal Medicine
DX: H54.7 Unspecified visual loss (principal)

== ENCOUNTER → 2024-10-04 10:59 | Outpatient (BNVA) | payer MEDICARE, SELFPAY | PROVIDERS: PCP Internal Medicine; Visit Provider Internal Medicine | DX: H54.7 Unspecified visual loss (principal) | CPT/HCPCS: 99202 ==

== ENCOUNTER 2024-11-22 11:44 | Outpatient (AMB) | payer MEDICARE, SELFPAY ==
--- NOTE | 2024-11-22 10:27 | MHC.PC.OV ---
Intake Visit Reasons: visit - see comments Allergies procaine [From NOVOCAIN] Allergy (Unknown, Verified 10/10/24 19:56) JITTERY Tobacco use date assessed: 10/04/24 Dental Screening Dental Screen Date: 10/04/24 [facility] Medical History Prostate cancer Tubular adenoma Sleep apnea CVA (cerebral vascular accident) Parkinson disease PTSD (post-traumatic stress disorder) HTN (hypertension) Prostate cancer Surgical History History of colonoscopy (~10/18/14) History of tonsillectomy History of back surgery Family History Father Prostate cancer Mother Cancer of ileocecal valve Paternal Grandmother Colon cancer Maternal Aunt Small intestine cancer FH: uterine cancer Pancreatic cancer Other Arterial stenosis Social History Housing: Assisted Living Facility Patient Tobacco Use Status: Former Tobacco user e-Cigarette/Vaping Use: Former Use service: No Current occupational status: retired Cognitive needs: No Hearing needs: No Vision needs: Yes (rx glasses) Questionnaire Thrive Questionnaire Date Thrive assessed: 10/04/24 Physical exam (Primary Care) Tobacco/Smoking Status: Tobacco use Status Tobacco use date assessed 10/04/24 10/04/24 11:03 Patient Tobacco Use Status Former Tobacco user 10/04/24 11:34 e-Cigarette/Vaping Use Former Use 10/04/24 11:34 Thrive Assessment: Date of Thrive Assessment Date Thrive assessed 10/04/24 10/04/24 11:03 Coding
[2024-11-22 11:46] VITALS: BP 124/76; PULSE 75; TEMP 36.4; O2SAT 96; BMI 27.2
--- NOTE | 2024-11-22 11:46 | A.OFFPC_ITS ---
Vital Signs 11/22/24 11:46 Height 5 ft 9 in Weight 184 lb BMI 27.2 BP 124/76 Blood Pressure Location Rt brachial Position Sitting Pulse 75 Pulse Source Pulse Oximeter Temp 97.6 F Temp Source Axillary Pulse Oximetry (%) 96 Oxygen Delivery Method Room Air Intake Visit Reasons: visit - see comments Assistant Clinical Nurse Manager Required: No Accompanied by: Self / Same As Patient Allergies procaine [From NOVOCAIN] Allergy (Unknown, Verified 11/24/24 12:39) JITTERY Medication List - Last Reconciled 11/24/24 by Sylvester Beltran MD amlodipine 5 mg PO DAILY atorvastatin 80 mg PO BEDTIME blood sugar diagnostic ([facility] Ultra Test strips) As directed carbidopa-levodopa 25-100 mg 1 tab PO QID carvedilol 6.25 mg PO BID clopidogrel 75 mg PO DAILY empagliflozin (Jardiance) 25 mg PO DAILY finasteride 5 mg PO DAILY 90 days glipizide 5 mg PO DAILY insulin glargine (Basaglar KwikPen U-100 Insulin) 30 units subcut QAM meloxicam 15 mg PO DAILY miscellaneous medical supply ([employer] [place] Incontin Clamp) As directed Tobacco use date assessed: 11/22/24 Fall risk assessment: No Falls in past year Last assessed Fall Risk: 11/22/24 Dental Screening Dental Screen Date: 11/22/24 Did you have a dental visit in the last 12 months?: Yes Did you have a dental problem in the last 6 months where you did not have access to dental care?: No PFSH Medical History Prostate cancer Tubular adenoma Sleep apnea CVA (cerebral vascular accident) Parkinson disease PTSD (post-traumatic stress disorder) HTN (hypertension) Prostate cancer Surgical History History of colonoscopy (~10/18/14) History of tonsillectomy History of back surgery Family History Father Prostate cancer Mother Cancer of ileocecal valve Paternal Grandmother Colon cancer Maternal Aunt Small intestine cancer FH: uterine cancer Pancreatic cancer Other Arterial stenosis Social History Housing: Assisted Living Facility Patient Tobacco Use Status: Former Tobacco user e-Cigarette/Vaping Use: Former Use service: No Current occupational status: retired Cognitive needs: Yes (wheelchair) Hearing needs: No Vision needs: Yes (rx glasses) Questionnaire PHQ-9 Over the last 2 weeks, how often have you been bothered by any of the following problems? 1. Little interest or pleasure in doing things: not at all 2. Feeling down, depressed, or hopeless: not at all 3. Trouble falling or staying asleep, or sleeping too much: not at all 4. Feeling tired or having little energy: not at all 5. Poor appetite or overeating: not at all 6. Feeling bad about yourself - or that you are a failure or have let yourself or your family down: not at all 7. Trouble concentrating on things, such as reading the newspaper or watching television: not at all 8. Moving or speaking so slowly that other people could have noticed. Or the opposite - being so fidgety or restless that you have been moving around a lot more than usual: not at all 9. Thoughts that you would be better off or of hurting yourself in some way: not at all Total score: 0 Source: Developed by Drs. Dillan Olmedo, Xin Kelly, Bo Krishnan and colleagues, with an educational garfield from [employer]. Thrive Questionnaire Date Thrive assessed: 10/04/24 I am a: Patient Within the past 12 months, did the food you bought not last and you didn't have the money to get more?: Never true Within the past 12 months, did you worry whether your food would run out before you got money to buy more?: Never true Do you have trouble paying for medicines?: No Do you have trouble getting transportation to medical appointments?: No Do you have trouble paying your heating and electricity bill?: No Do you have trouble taking care of your child, family member or friend?: No Do you have trouble with day-to-day activities such as bathing, preparing meals, shopping, managing finances, etc.?: No Are you currently unemployed and looking for a job?: No Are you interested in more education?: No THRIVE Score: 0 AUDIT C Alcohol Use Questionnaire (AUDIT-C) 1. How often do you have a drink containing alcohol?: Monthly or less 2. How many drinks containing alcohol do you have on a typical day when you are drinking?: 1 or 2 3. How often do you have six or more drinks on one occasion?: Less than monthly Total Score: 2 MAICOL-7 AMB Questionnaire MAICOL-7 Date MAICOL - 7 assessed: 11/22/24 Feeling nervous, anxious, or on edge: 0 = Not at all Not being able to stop or control worryin = Not at all Worrying too much about different things: 0 = Not at all Trouble relaxin = Not at all Being so restless that it is hard to sit still: 0 = Not at all Becoming easily annoyed or irritable: 0 = Not at all Feeling afraid as if something awful might happen: 0 = Not at all Total MAICOL-7 score (0-4 normal; 5-9 mild; 10-14 moderate; 15-21 severe): 0 Source: Developed by Drs. Dillan Olmedo, Xin Kelly, Bo Krishnan and colleagues, with an educational garfield from [employer]. Physical exam (Primary Care) Vital Signs: Last Vital Signs Temp 97.6 F 11/22/24 11:46 Pulse 75 11/22/24 11:46 BP 124/76 11/22/24 11:46 Pulse Ox 96 11/22/24 11:46 Oxygen Delivery Method Room Air 11/22/24 11:46 BMI result Body Mass Index 27.2 Tobacco/Smoking Status: Tobacco use Status Tobacco use date assessed 11/22/24 11/22/24 11:49 Patient Tobacco Use Status Former Tobacco user 11/22/24 11:49 e-Cigarette/Vaping Use Former Use 11/22/24 11:49 PHQ-9: PHQ-9 Score PHQ-9: Total score 0 11/22/24 11:49 Thrive Assessment: Date of Thrive Assessment Date Thrive assessed 10/04/24 11/22/24 11:49 Coding Level of Care Code Est Pt Level 4 (58920) Complex EM visit Add On G2211 Diagnoses DM (diabetes mellitus) type II uncontrolled with eye manifestation Diabetes mellitus E11.9 Assessment & Plan Assessment & Plan (1) DM (diabetes mellitus) type II uncontrolled with eye manifestation: Plan: BW has been requested. Will call with the results (2) Diabetes mellitus: Code(s): E11.9 - Type 2 diabetes mellitus without complications Plan History of Present Illness - The patient is a 73-year-old male presenting with right arm and shoulder pain. - Approximately five weeks ago, the patient incurred an injury to his right arm while lifting himself from a recliner. - Persistent pain has been noted, particularly with certain movements, and the condition has radiated to the shoulder and scapular area. - Suggestions of tendon inflammation lead to a provisional diagnosis of tendinitis. - The patient is also experiencing vision changes. - Despite undergoing recent optometric evaluation, the patient continues to notice gradual vision degeneration. 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 - Additionally, hyperglycemia remains a concern. - Nocturnal blood glucose levels reached 350 mg/dL recently. - Further assessment of the glycemic control is deemed necessary through an A1c test. Social History - The patient?s social determinants of health, such as housing, employment, education, family status, or substance use, were not explicitly discussed. Review of Systems - Eyes: Reports vision changes; glasses to be picked up. - Musculoskeletal: Reports right arm and shoulder pain, particularly with motion, suggestive of musculoskeletal strain. - Endocrine: Reports elevated nighttime blood sugar level. Physical Exam General: Cooperative and healthy appearing Nutritional Appearance: Well nourished Orientation/consciousness: Patient oriented x3 Limitations: No limitations Head: Normal to inspection General: Appearance normal, both eyes and all related structures Neck: Normal visual inspection Chest: Normal palpation of entire chest wall Respiratory: N ormal respiratory effort Neurology: Patient oriented x3, but reports pain and discomfort in the right arm. Full range of motion is present, indicating no rupture, but there is a possible strain or tendinitis. Results - Labs: A1c test pending as discussed for hyperglycemia management. Plan 1. Right Arm Pain, Possible Tendinitis - Prescribe meloxicam for one week; caution with arm movements advised. 2. Vision Changes - Recommend follow-up with an inspector conveyor line; glasses collection reminder given. 3. Hyperglycemia - Order A1c testing; monitor current blood sugar control strategies. Discussion Notes I discussed with Mr. Sandoval the differential diagnosis of right arm pain, with observations pointing towards tendinitis. I explained that the decision to initiate meloxicam was based on its anti-inflammatory effects to alleviate discomfort. We reviewed the importance of completing a visit with an inspector conveyor line for a comprehensive evaluation of his vision changes, distinguishing it from the scope of optometric care. We also reviewed the need for an A1c test to better understand his hyperglycemia readings. I advised on the benefits and outlined potential side effects of meloxicam and ensured the patient understood the change in his care approach. Patient Instructions - Take meloxicam as prescribed for right arm pain. - Schedule an appointment with the inspector conveyor line for further evaluation on [employer]. 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 - Obtain a lab test for A1c to assess blood sugar levels. - Avoid movements that provoke arm pain. - Monitor blood glucose levels and record any unusual readings. Orders: Orders Complete Blood Count no Diff 11/22/24 E11.9 - Type 2 diabetes mellitus without complications Lipid Panel 11/22/24 E11.9 - Type 2 diabetes mellitus without complications Hemoglobin A1c 11/22/24 E11.9 - Type 2 diabetes mellitus without complications UA and rflx microscopic 11/22/24 E11.9 - Type 2 diabetes mellitus without complications Basic Metabolic Panel 11/22/24 E11.9 - Type 2 diabetes mellitus without complications Liver Panel 11/22/24 E11.9 - Type 2 diabetes mellitus without complications Thyroid Stimulating Hormone 11/22/24 E11.9 - Type 2 diabetes mellitus without complications Microalbumin, Random (w Creat) 11/22/24 E11.9 - Type 2 diabetes mellitus without complications Referrals Cologuard Test Z12.11 - Encounter for screening for malignant neoplasm of colon Medications: New meloxicam 15 mg PO DAILY 14 tabs 0RF
--- OUTSIDE RECORDS SUMMARY | 2024-11-22 13:28 | XMS_ITS | Clinical Summary ---
Author Organization [facility] [employer] Address [address] [place] [address] Phone Care Team Providers Care Primary Care Nurse Practitioner Name Role Phone Dieter Panda MD Primary Care Provider [phone] Allergies No known active allergies Medications amLODIPine [...] daily. Active empagliflozin (Jardiance) 10 mg tablet Take 1 tablet (10 mg total) by mouth 1 (one) time each day in the morning. Active finasteride (PROSCAR) 5 mg tablet Take [...] Chest pain 02/23/2024 CVA (cerebral vascular accident) ([facility] V24, [facility] V28) 02/23/2024 Multiple vessel coronary artery disease 02/23/20 24 Assessment & Plan (06/21/2024 2:20 PM EST): See NSTEMI plan. Orders: Lipid panel; Future NSTEMI (non-ST elevated myoc ardial infarction) ([facility] V24, [facility] V28) 02/23/2024 Assessment & Plan (06/21/2024 2:20 [...] Future Essential hypertension 02/21/2024 Assessment & Plan (11/14/2024 8:58 AM EDT): Blood pressure is well-controlled today, continue on current antihypertensive medication regimen. Assessment & Plan (06/21/2024 2:20 PM EST): Blood pressure is well-controlled today, 124/76, continue on current antihypertensive medication regimen. PAF (paroxysmal atrial fibri llation) ([facility] V24, [facility] V28) 02/21/2024 Assessment & Plan (06/21/2024 2:20 [...] Pure hypercholesterolemia, unspecified 4 Assessment & Plan (11/14/2024 8:58 AM EDT): Continues on atorvastatin 80 mg daily, will update lipid panel. Assessment & Plan (06/21/2024 2:20 PM EST): Continue on atorvastatin 80 mg daily. Will update lipid panel. Orders: Lipid panel; Future Encounters Date Type Department Care Team Description 11/14/2024 7:40 AM EDT Office Visit [facility] Cardiology [facility] [address] [place] [id number] Juliane Perea NP PAC (premature atrial contraction) (Primary Dx); Coronary artery disease involving twenty-nine palms heart, unspecified vessel or lesion type, unspecified whether angina present; Essential hypertension; Pure hypercholesterolemia , unspecified 11/14/2024 Telephone [facility] [address] [place] [phone] Juliane Perea NP 10/30/2024 2:30 PM EDT Ancillary Procedure [facility] Cardiology [facility] [address] [place] [address] Multiple vessel coronary artery disease; PAC (premature atrial contraction) from Last 3 Months Medical History Medical History Date Comments Flaccid neuropathic bladder, 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, not elsewhere classified Parkinson's disease with dys kinesia, without mention of fluctuations (CMS/HCC V24, CMS/HCC V28) DX:Parkinson's disease with dyskinesia, without mention of fluctuations (HCC) Impacted cerumen of left ear DX: Impacted cerumen of left ear Unspecified urinary incontinence DX:Unspecified urinary incontinence Chronic kidney disease, stag e 3 (CMS/HCC V24, [facility] V28) DX:Chronic kidney disease, s tage 3 ([facility]) Unilateral primary osteoarth ritis, right hip DX:Unilateral [...] Type 2 diabetes mellitus wit hout complications ([facility] V24, [facility] V28) DX:Type 2 oh betes mellitus without complications ([facility]) Malignant neoplasm of prosta te ([facility] V24, [facility] V28) DX:Malignant neoplasm of [place] state ([facility]) Idiopathic progressive neuropathy DX:Idiopathic progressive neuropathy Status post insertion of ynes g eluting coronary artery stent DX:Status post insertion of drug eluting coronary artery stent Diabetes ([facility] V24, [facility] V28) DX:Diabetes ([facility]) Social History Tobacco Use Types Packs/Day Years [...] Sign Reading Time Taken Comments Blood Pressure 130/78 11/14/2024 7:38 AM EDT Pulse 72 11/14/2024 7:38 AM EDT Temperature - - Respiratory Rate - - Oxygen Saturation 98% 11/14/2024 7:38 AM EDT Inhaled Oxygen Concentration - - Weight 83 kg (183 lb) 11/14/2024 7:38 AM EDT Height 181.6 cm (5' 11.5 ) 11/14/2024 7:38 AM ED T Body Mass Index 25.17 11/14/2024 7:38 AM EDT Plan of Treatment Upcoming Encounters Date Type Department Care Team (Late st Contact Info) Description 01/22/2025 8:40 AM EDT Consult [facility] Cardiology [facility] [address] [place] [phone] Jeff Mckeon MD [address] [place] [address] 05/23/2025 9:50 AM EST Office Visit [facility] Cardiology [facility] [address] [place] [phone] Sahil Bright MD [address] [place] [address] [address] [place] [address] Health Maintenance Due Date Last Done Comments Diabetes: Annual Foot Exam 12/17/1959 Diabetes: Annual Retina Eye Exam 12/17/1959 DTaP,Tdap,and Td Vaccines (1 - Tdap) 1968 Zoster Vaccines (1 of 2) 1968 RSV Immunization Adult Patients (1 - Risk 60-74 years 1-dose series) 2009 Pneumococcal Vaccine: 50+ Years (3 of 3 - PPSV23, PCV20 or PCV21) 05/26/2020 03/31/2020, 05/01/2010 Colorectal Cancer Screening: Colonoscopy 05/17/2022 Depression Screening 05/17/2022 Falls Risk Assessment 05/17/2022 Hepatitis C Screening 05/17/2022 Medicare Annual Wellness Visit 05/17/2022 Social Influencers of Health Screening 05/17/2022 COVID-19 Vaccine ( season) 2024 10/20/2021, 03/28/2021, 09/28/2020, Additional history exists Diabetes: Annual Urine Albumin-Creatinine Ratio (uACR) 06/21/2024 Influenza Vaccine (Season Ended) 2025 06/18/2022, 02/18/2021, 03/31/2020, Additional history exists Diabetes: Blood Sugar Control Test (HGBA1C) 05/16/2025 11/14/2024 Diabetes: Annual GFR (Glomerular Filtration Rate) 11/14/2025 11/14/2024, 01/13/2022, 07/12/2018 Hypertension/CHF/CAD Annual BMP Blood Test 11/14/2025 11/14/2024, 01/13/2022, 07/12/2018 Cholesterol Screening (Lipid Panel) 11/14/2029 11/14/2024 HIB Vaccines Aged Out No longer eligi [...] on patient's age to complete this topic Procedures Procedure Name Priority Date/Time Associated Diagnosis Comments LIPID PANEL Routine 11/14/2024 8:44 AM EDT HEMOGLOBIN A1C Routine 11/14/2024 8:44 AM EDT THYROID STIMULATING HORMONE WITH REFLEX FREE T4 Routine 11/14/2024 8:44 AM EDT Palpitations MAGNESIUM Routine 11/14/2024 8:44 AM EDT Palpitations COMPREHENSIVE METABOLIC PANEL Routine 11/14/2024 8:44 AM EDT Palpitations TRANSTHORACIC ECHOCARDIOGRAM (TTE) COMPLETE Routine 10/30/2024 3:26 PM EDT Multiple vessel coronary artery disease PAC (premature atrial contraction) from Last 3 Months Results * Thyroid stimulating hormone with reflex free T4 (11/14/2024 8:44 AM EDT) Thyroid Stimulating Hormone (TSH) 1.350 0.450 - 4.500 uIU/mL [facility] 1 Blood Venous blood specimen / Unknown 11/14/2024 8:44 AM EDT 11/14/2024 Narrative [facility] 1 - 11/15/2024 7:06 AM EDT Performed at: ??01 - [facility] ??[id number] [employer] Consultant: Chelle Valencia MD, Phone: ??[phone] us Juliane Perea [employer] CONSULTANT LAB BLOOD ORDERABLES Final Res ult [facility] 1 * Magnesium (11/14/2024 8:44 AM EDT) [facility] Magnesium 2.2 1.6 - 2.3 mg/dL [facility] 1 Blood Venous blood specimen / Unknown 11/14/2024 8:44 AM EDT 11/14/2024 Narrative [facility] 1 - 11/15/2024 8:07 AM EDT Performed at: ??01 - [facility] [address] ??[id number] Autom[employer] Consultant: Chelle Valencia MD, Phone: ??[phone] us Juliane Perea NP LAB BLOOD ORDERABLES Final Res ult [facility] * (ABNORMAL) Hemoglobin A1c (11/14/2024 8:44 AM EDT) [facility] Hemoglobin A1C 7.5(H) 4.8 - 5.6 % [facility] 1 Comment: ? Prediabetes: 5.7 - 6.4 ? Diabetes: >6.4 ? Glycemic control for adults with diabetes: <7.0 11/14/2024 8:44 AM EDT 11/14/2024 Narrative [facility] 1 - 11/15/2024 4:06 AM EDT Performed at: ??01 - [facility] [address] ??[id number] Automotive Consultant: Chelle Valencia MD, Phone: ??[phone] Juliane Perea SHOWRO[employer] CONSULTANT LAB BLOOD ORDERABLES Final Res ult Performing Organization Address [facility] de Phone Number [facility] * (ABNORMAL) Lipid panel (11/14/2024 8:44 AM EDT) Cholesterol Total 113 100 - 199 mg/dL [facility] 1 Triglycerides 121 0 - 149 mg/dL [facility] 1 HDL Cholesterol 34(L) >39 mg/dL [facility] 1 VLDL Cholesterol Calculated 22 5 - 40 mg/dL [facility] 1 LDL Chol Calc (NIH) 57 0 - 99 mg/dL [facility] 1 11/14/2024 8:44 AM EDT 11/14/2024 Narrative [facility] 1 - 11/15/2024 7:06 AM EDT Performed at: ??01 - [facility] [place] [address] [place], [place] ??[id number] [employer] Consultant: Chelle Valencia MD, Phone: ??[phone] Juliane Perea SHOWRO[employer] CONSULTANT LAB BLOOD ORDERABLES Final Res ult Performing Organization Address [facility] de Phone Number [facility] * (ABNORMAL) Comprehensive metabolic panel (11/14/2024 8:44 AM EDT) Glucose 165(H) 70 - 99 mg/dL [facility] 1 Blood Urea Nitrogen (BUN) 26 8 - 27 mg/dL [facility] 1 Creatinine 1.22 0.76 - 1.27 mg/dL [facility] 1 eGFR 62 >59 mL/min/1. 73 [facility] 1 BUN/Creatinine Ratio 21 10 - 24 [facility] 1 Sodium 141 134 - 144 mmol/L [facility] 1 Potassium 4.1 3.5 - 5.2 mmol/L [facility] 1 Chloride 103 96 - 106 mmol/L [facility] 1 Carbon Dioxide 15(L) 20 - 29 mmol/L [facility] 1 Calcium 9.4 8.6 - 10.2 mg/dL [facility] 1 Protein Total 7.2 6.0 - 8.5 g/dL [facility] 1 Albumin 4.4 3.8 - 4.8 g/dL [facility] 1 Globulin Total 2.8 1.5 - 4.5 g/dL [facility] 1 Bilirubin Total 0.5 0.0 - 1.2 mg/dL [facility] 1 Alkaline Phosphatase 126(H) 44 - 121 IU/L [facility] 1 Aspartate aminotransferase??(A ST) 14 0 - 40 IU/L [facility] 1 Alanine Aminotransferase (ALT) 12 0 - 44 IU/L [facility] 1 Blood Venous blood specimen / Unknown 11/14/2024 8:44 AM EDT 11/14/2024 Narrative [facility] 1 - 11/15/2024 7:06 AM EDT Performed at: ??01 - [facility] [address] ??[id number] [employer] Consultant: Chelle Valencia MD, Phone: ??[phone] us Juliane Perea NP LAB BLOOD ORDERABLES Final Res ult [facility] * (ABNORMAL) TRANSTHORACIC ECHOCARDIOGRAM (TTE) COMPLETE (10/30/2024 3:26 PM EDT) Left Atrium Minor Jensen 5.6 cm CV PACS Left Atrium Major Jensen 5.7 cm CV PACS LA Area Sys (A2C) 20 cm2 CV PACS LA Area Sys (A4C) 16 cm2 CV PACS LA Volume (BP) 46 mL CV PACS RA Area 16.1 cm2 CV PACS RA 2D Volume 34 mL CV PACS Aortic Sinus Valsalva 3.2 cm CV PACS Ascending Aorta 3.6 cm CV PACS IVC Proximal 0.8 cm CV PACS IVC Proximal 0.3 cm CV PACS IVSD 1.0 0.6 - 1.0 cm CV PACS LVIDD 5.2 4.2 - 5.8 cm CV PACS LVIDS 3.6 2.5 - 4.0 cm CV PACS LVOT Diameter 2.1 cm CV PACS LVOT Mean Julio 0.6 m/s CV PACS LVOT Mean Grad 2 mmHg CV PACS LVOT Peak VTI 16.7 cm CV PACS LVOT Peak Julio 0.9 m/s CV PACS LVOT Peak Gradient 3 mmHg CV PACS LVPWD 0.9 0.6 - 1.0 cm CV PACS MV E' Tissue Velocity Lateral 9 cm/s CV PACS MV E' Tissue Velocity Septal 6 cm/s CV PACS LVOT Area 3.5 cm2 CV PACS LVOT Stroke Volume 58 mL CV PACS E Wave Deceleration Time 232 119 - 242 ms CV PACS MV Peak A Julio 1.01 m/s CV PACS MV Peak E Julio 0.60 m/s CV PACS DE End Max Velocity 1.1 m/s CV PACS PA End Diastolic Pressure 5 mmHg CV PACS PV Acceleration Time 137 ms CV PACS RV Diastolic Basal Dimension 3.3 2.5 - 4.1 cm CV PACS RV S' 9 cm/s CV PACS TAPSE 21 mm CV PACS E/E' Ratio Septal 10 CV PACS E/E' Ratio Averaged 8 CV PACS Relative Wall Thickness ratio 0.35 CV PACS FS 31 % CV PACS LV Mass 2D 181 g CV PACS LVOT flow 208 mL/s CV PACS E/A Ratio 0.6 CV PACS E/E' Ratio Lateral 7 CV PACS BSA 2.05 m2 CV PACS LA Volume Index (BP) 23 mL/m2 CV PACS LVIDD Index 2.56 cm/m2 CV PACS LVIDS Index 1.77 cm/m2 CV PACS LV Mass Index 2D 89 50 - 102 g/m2 CV PACS LVOT Stroke Index 29 mL/m2 CV PACS RA 2D Volume Index 17(A) 18 - 32 mL/m2 CV PACS Ascending Aorta Index 1.77 cm/m2 CV PACS Anatomical Region Laterality Modality Ultrasound Narrative 11/02/2024 4:19 PM EDT ?Left??Ventricle: Left ventricle cavity size is normal. Wall thickness is normal. Systolic function is normal with an ejection fraction of 60-65%. There are no regional LV wall motion abnormalities. There is Grade I (mild) diastolic dysfunction. ?Left??Atrium: Left atrium cavity size is normal. ?Right??Ventricle: Right ventricle cavity appears normal. Systolic function is normal. ?Right??Atrium: Right atrium cavity is normal. ?No hemodynamically significant valvular heart disease. Left Ventricle Left ventricle cavity size is normal. Wall thickness is normal. Systolic function is normal with an ejection fraction of 60-65%. There are no regional LV wall motion abnormalities. There is Grade I (mild) diastolic dysfunction. Right Ventricle Right ventricle cavity appears normal. Systolic function is normal. Left Atrium Left atrium cavity size is normal. Right Atrium Right atrium cavity is normal. IVC/SVC Inferior vena cava structure is normal. RA pressures is estimated to be 3 mmHg (IVC diameter <21 mm and decreases >50% during inspiration). Mitral Valve The leaflets are mildly thickened. There is mild annular calcification. There is no significant mitral valve regurgitation. There is no significant stenosis noted. Tricuspid Valve Tricuspid valve structure is normal. There is trace regurgitation. Tricuspid regurgitation is inadequate for estimation of right ventricular systolic pressure. There is no significant tricuspid valve stenosis. Aortic Valve The aortic valve is trileaflet. The leaflets are not thickened and exhibit normal excursion. There is no regurgitation or stenosis. Pulmonic Valve The pulmonic valve was not well visualized. There is mild pulmonic valve regurgitation. No significant pulmonary valve stenosis noted. Ascending Aorta The aorta appears normal in size. Pericardium Pericardium appears normal. There is no pericardial effusion. Study Details Overall the study quality was technically difficult. 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
== END 2024-11-22 12:05 | disposition home or self-care (01) ==
LOC: HO.HMCHD 11:44
PROVIDERS: PCP Internal Medicine; Visit Provider Internal Medicine
DX: E11.9 Type 2 diabetes mellitus without complications (principal)

== ENCOUNTER → 2024-11-22 11:44 | Outpatient (BNVA) | payer MEDICARE, SELFPAY | PROVIDERS: PCP Internal Medicine; Visit Provider Internal Medicine | DX: E11.9 Type 2 diabetes mellitus without complications (principal) | CPT/HCPCS: 99212 ==

== ENCOUNTER 2025-04-02 13:57 | Outpatient (AMB) | payer MEDICARE, SELFPAY ==
--- NOTE | 2025-04-02 14:01 | A.OFFPC_ITS ---
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 Accompanied by: Self / Same As Patient Allergies procaine (From [facility]) Allergy (Unknown, Verified 04/02/25 14:01) JITTERY Medication List - Last Reconciled 04/02/25 by Migue Boudreaux MD amlodipine 5 mg PO DAILY atorvastatin 80 mg PO BEDTIME blood sugar diagnostic (Indi[employer] Publishing[employer] Ultra Test strips) As directed carbidopa-levodopa 25-100 mg 1 tab PO QID carvedilol 6.25 mg PO BID clopidogrel 75 mg PO DAILY empagliflozin (Jardiance) 25 mg PO DAILY finasteride 5 mg PO DAILY 90 days glipizide 10 mg PO BID insulin glargine (Basaglar KwikPen U-100 Insulin) 30 units subcut QAM ketoconazole 2% appl topical BID PRN ketoconazole 2% topical lifitegrast 5% (Xiidra) drps ophthalmic (eye) .QD miscellaneous medical supply ([facility] Incontin Clamp) As directed oxybutynin chloride ER 10 mg PO DAILY PRN sennosides (senna) 8.6 mg PO BEDTIME PRN sitagliptin phosphate (Januvia) 100 mg PO DAILY Tobacco use date assessed: 11/22/24 Dental Screening Dental Screen Date: 11/22/24 HPI HPI Comments History of Present Illness Details The patient is a 74-year-old male presenting for a follow-up visit to discuss ongoing management of multiple chronic medical conditions. Recently, the patient experienced rectal bleeding, for which he was hospitalized. It was determined to be a diverticular bleed following a colonoscopy. The patient reports that the bleeding has ceased, and he experienced no pain during the episode. The patient has a chronic history of Parkinson's Disease, which he reports does not significantly bother him but acknowledges it could progress over time. The patient's Essential Hypertension is generally well-controlled, though his blood pressure was elevated during today's visit. He admits to possible white coat hypertension but plans to monitor blood pressure daily at his residential facility. Type 2 Diabetes Mellitus has been managed effectively, with a recent A1c level of 6.2. The patient takes multiple medications including Jardiance, glipizide, and glargine, managed by his home visits nurse. Notably, his baseline kidney function reveals Chronic Kidney Disease Stage 3B, which was diagnosed some time ago and requires regular monitoring. The patient also has Benign Prostatic Hyperplasia and a history of prostate cancer. Despite previous prostate cancer treatment, the patient continues to experience issues related to BPH requiring finasteride and occasional oxybutynin usage. The patient is experiencing erectile dysfunction, particularly following a stroke, which has left him with right-sided hemiparesis. He expressed frustration about the impotence and disinterest in pursuing medications that may exacerbate his hypertension. Medical History: - Parkinson's Disease - Essential Hypertension - Type 2 Diabetes Mellitus - Chronic Kidney Disease Stage 3B - Benign Prostatic Hyperplasia - History of Prostate Cancer - Stroke with right-sided hemiparesis - Mixed Hyperlipidemia - Diverticular Bleeding - Erectile Dysfunction Surgical History: - Stent placement in the heart Medications: - Amlodipine for hypertension - Lipitor for cholesterol management - Carbidopa-Levodopa 4 times a day for P arkinson's Disease - Plavix post-stent placement - Jardiance, glipizide, and glargine for diabetes - Finasteride for Benign Prostatic Hyper plasia - Oxybutynin as needed for overactive bl adder - Januvia for diabetes Diagnostic Results: - Labs: A1c of 6.2 indicating well-contr olled diabetes; cholesterol at 127 indicates good management - Colonoscopy: Showed findings consisten t with diverticular bleeding Social History: - Resides in a facility with daily suppo rt care - Relies on a walker due to impaired bal ance and right-sided weakness from a stroke - Describes living situation as affectin g dietary intake, specifically noting high sugar content in food [facility] Medical History (Updated 04/02/25 @ 14:40 by Migue Boudreaux MD) Stage 3b chronic kidney disease (CKD) Lower GI bleed Erectile dysfunction CAD (coronary artery disease) Diabetes Hyperlipidemia Prostate cancer Tubular adenoma Sleep apnea CVA (cerebral vascular accident) Parkinson disease PTSD (post-traumatic stress disorder) HTN (hypertension) Prostate cancer Surgical History History of colonoscopy (~10/18/14) History of tonsillectomy History of back surgery Family History Father Prostate cancer Mother Cancer of ileocecal valve Paternal Grandmother Colon cancer Maternal Aunt Small intestine cancer FH: uterine cancer Pancreatic cancer Other Arterial stenosis Social History Housing: Assisted Living Facility Patient Tobacco Use Status: Former Tobacco user e-Cigarette/Vaping Use: Former Use service: No Current occupational status: retired Cognitive needs: Yes (wheelchair) Hearing needs: No Vision needs: Yes (rx glasses) Questionnaire Thrive Questionnaire Date Thrive assessed: 10/04/24 MAICOL-7 AMB Questionnaire MAICOL-7 Date MAICOL - 7 assessed: 11/22/24 Source: Developed by Drs. Dillan Olmedo, Xin Kelly, Bo Krishnan and colleagues, with an educational garfield from [employer]. Review of Systems Narrative - Gastrointestinal: Reports resolved rectal bleeding - Neurological: Denies further significant symptoms from Parkinson's, reports dizziness attributed to post-stroke weakness - Cardiovascular: Denies issues apart from managed hypertension - Genitourinary: Denies new urinary symptoms but reports erectile dysfunction post-stroke - Endocrine: Denies new symptoms, A1c well-controlled All systems reviewed & are unremarkable except as reviewed in HPI and above Physical exam (Primary Care) Vital Signs: Last Vital Signs Temp 98.3 F 04/02/25 14:03 Pulse 78 04/02/25 14:03 Resp 16 04/02/25 14:03 BP 140/86 H 04/02/25 14:03 Pulse Ox 96 04/02/25 14:03 BMI result Body Mass Index 26.9 Tobacco/Smoking Status: Tobacco use Status Tobacco use date assessed 11/22/24 04/02/25 14:03 Patient Tobacco Use Status Former Tobacco user 04/02/25 14:03 e-Cigarette/Vaping Use Former Use 04/02/25 14:03 Thrive Assessment: Date of Thrive Assessment Date Thrive assessed 10/04/24 04/02/25 14:03 Narrative General: Alert and oriented, Well nourished, No acute distress. Eye: Pupils are equal, round and reactive to light, Intact accommodation, Extraocular movements are intact, Normal conjunctiva, Vision unchanged. HENT: Normocephalic, Atraumatic, Tympanic membranes are clear, Normal hearing, Oral mucosa is moist, No pharyngeal erythema, Ear canals patent. Respiratory: Lungs CTA bilaterally, No wheeze, Respirations are non-labored. Cardiovascular: Regular rate, Regular rhythm, S1 auscultated, S2 auscultated, No murmur, Good pulses equal in all extremities, Normal peripheral perfusion, No edema. Gastrointestinal: Soft, Non-tender, Non-distended, Normal bowel sounds, No organomegaly. Musculoskeletal: Normal range of motion, Normal strength, No tenderness, No swelling, No deformity, Normal gait. Integumentary: Warm, Dry, [place], Intact. Notable for a small wound on the face, likely from shaving, and multiple small wounds on the lower extremities, possibly from itching. Neurologic: Alert, Oriented, Normal sensory, Normal motor function, No focal defects, Cranial Nerves II-XII are grossly intact, Normal deep tendon reflexes. Patient uses a walker for ambulation due to dizziness and right-sided weakness from a previous stroke. Psychiatric: Cooperative, Appropriate mood & affect, Normal judgment. Coding Level of Care Code TCM Mod MDM <= 14 Days Complex EM visit Add On G2211 Diagnoses Primary hypertension I10 Hypertension type: primary hypertension Other hyperlipidemia E78.49 Hyperlipidemia type: other hyperlipidemia Type 2 diabetes mellitus with stage 3b chronic kidney disease, with long-term current use of insulin E11.22; N18.32; Z79.4 Diabetes mellitus type: type 2 Diabetes mellitus fpc insulin use: with termination clerk use Diabetes mellitus complication status: with kidney complications Diabetes mellitus complication detail: with chronic kidney disease Chronic kidney disease stage: stage 3 (moderate) Chronic kidney disease stage 3 subtype: stage 3b (GFR 30-44) BPH w urinary obs/LUTS N40.1; N13.8 Coronary artery disease involving [place] coronary artery of [place] heart without angina pectoris I25.10 Coronary Disease-Associated Artery/Lesion type: [place] artery [place] vs. transplanted heart: [place] heart Associated angina: without angina Parkinson disease G20 Other male erectile dysfunction N52.8 Erectile dysfunction type: due to other cause Lower GI bleed K92.2 Stage 3b chronic kidney disease (CKD) N18.32 Assessment & Plan Assessment & Plan (1) HTN (hypertension): Comment: - Patient pressures stable initially elevated with repeat at 130 - Continue current regiment Code(s): I10 - Essential (primary) hypertension Category: Medical Qualifiers: Hypertension type: primary hypertension Qualified Code(s): I10 - Essential (primary) hypertension (2) Hyperlipidemia: Comment: - Continue Atorvastatin 80 - Last cholesterol at 130 (WNL) Code(s): E78.5 - Hyperlipidemia, unspecified Category: Medical Qualifiers: Hyperlipidemia type: other hyperlipidemia Qualified Code(s): E78.49 - Other hyperlipidemia (3) Diabetes: Comment: - Continue current regimen, managed by endocrinology, due to well-controlled blood glucose (A1c of 6.2). Code(s): E11.9 - Type 2 diabetes mellitus without complications Category: Medical Qualifiers: Diabetes mellitus type: type 2 Diabetes mellitus termination clerk insulin use: with fpc use Diabetes mellitus complication status: with kidney complications Diabetes mellitus complication detail: with chronic kidney disease Chronic kidney disease stage: stage 3 (moderate) Chronic kidney disease stage 3 subtype: stage 3b (GFR 30-44) Qualified Code(s): E11.22 - Type 2 diabetes mellitus with diabetic chronic kidney disease; N18.32 - Chronic kidney disease, stage 3b; Z79.4 - retirement (current) use of insulin (4) BPH w urinary obs/LUTS: Comment: - Continue managing with finasteride and oxybutynin as needed. Code(s): N40.1 - Benign prostatic hyperplasia with lower urinary tract symptoms; N13.8 - Other obstructive and reflux uropathy Category: Medical (5) CAD (coronary artery disease): Comment: - Continue Plavix - Continue follow up with Cardiology Code(s): I25.10 - Atherosclerotic heart disease of [place] coronary artery without angina pectoris Category: Medical Qualifiers: Coronary Disease-Associated Artery/Lesion type: [place] artery [place] vs. transplanted heart: [place] heart Associated angina: without angina Qualified Code(s): I25.10 - Atherosclerotic heart disease of [place] coronary artery without angina pectoris (6) Parkinson disease: Comment: - Continue current therapy with Carbidopa-Levodopa. Assessment for potential referral to a neurologist for comprehensive management planned. Code(s): G20 - Parkinson's disease Category: Medical (7) Erectile dysfunction: Comment: - Discussed non-pharmacologic approaches first; script for viagra sent and advised patient of ADRs Code(s): N52.9 - Male erectile dysfunction, unspecified Category: Medical Qualifiers: Erectile dysfunction type: due to other cause Qualified Code(s): N52.8 - Other male erectile dysfunction (8) Lower GI bleed: Comment: - Discussed as a resolved episode of diverticular bleeding, confirmed by colonoscopy, requiring no further intervention at this time, but advised if he has repeated episodes to present to the hospital Code(s): K92.2 - Gastrointestinal hemorrhage, unspecified Category: Medical (9) Stage 3b chronic kidney disease (CKD): Comment: - Encourage blood pressure and diabetes management as effective CKD prevention. Code(s): N18.32 - Chronic kidney disease, stage 3b Category: Medical Plan: Health Maintenance: - Discussed importance of monitoring blood pressure - Encourage healthy eating with reduced sugar intake, especially considering residing facility dietary limitations Patient was informed and verbally consented to the use of an ambient scribe for clinic note documentation during this visit. Plan We reviewed the patient's recent hospitalization due to rectal bleeding, which was resolved and confirmed as a diverticular bleed. I emphasized maintaining blood pressure control and diabetes management as critical due to his existing Chronic Kidney Disease Stage 3B. The patient will monitor blood pressure daily, and we will review these readings during the next visit. For Parkinson's management, a referral to a neurologist was recommended due to the progressive nature of the disease. We discussed the underlying risks associated with starting therapy for erectile dysfunction due to cardiovascular concerns, emphasizing non-pharmacologic strategies initially. The patient can expect follow-up in five to six months unless concerns arise, wherein he should feel free to contact us earlier. Orders: Referrals Neurology Referral G20 - Parkinson's disease Medications: New sildenafil (Viagra) administer 30 minutes to 4 hours before activity 25 mg PO DAILY PRN 10 tabs 0RF sexual activity Patient Instructions: - Monitor blood pressure daily and keep a log for the next visit. - Continue all current medications as prescribed. - Maintain diabetes control; your A1c is excellent. - Use oxybutynin as needed for bladder symptoms. - Follow a heart-healthy diet; reduce sugar intake. - Exercise caution with measures for erectile dysfunction, follow up if willing to explore medication options. - Bring documentation of home blood pressure readings to the next appointment.
[2025-04-02 14:03] VITALS: BP 140/86; PULSE 78; RESP 16; TEMP 36.8; O2SAT 96; BMI 26.9
== END 2025-04-02 15:04 | disposition home or self-care (01) ==
PROVIDERS: PCP Student in an Organized Health Care Education/Training Program; Visit Provider Student in an Organized Health Care Education/Training Program
DX: I12.9 Hypertensive chronic kidney disease with stage 1 through stage 4 chronic kidney disease, or unspecified chronic kidney disease (principal); E11.22 Type 2 diabetes mellitus with diabetic chronic kidney disease; N18.32 Chronic kidney disease, stage 3b; Z79.4 Long term (current) use of insulin; G20.C Parkinsonism, unspecified; E78.49 Other hyperlipidemia; N40.1 Benign prostatic hyperplasia with lower urinary tract symptoms; N13.8 Other obstructive and reflux uropathy; I25.10 Atherosclerotic heart disease of native coronary artery without angina pectoris; N52.8 Other male erectile dysfunction; K92.2 Gastrointestinal hemorrhage, unspecified

== ENCOUNTER → 2025-04-02 13:57 | Outpatient (BNVA) | payer MEDICARE, SELFPAY | PROVIDERS: PCP Internal Medicine; Visit Provider Student in an Organized Health Care Education/Training Program | DX: E11.22 Type 2 diabetes mellitus with diabetic chronic kidney disease (principal); I12.9 Hypertensive chronic kidney disease with stage 1 through stage 4 chronic kidney disease, or unspecified chronic kidney disease; N18.32 Chronic kidney disease, stage 3b; E78.49 Other hyperlipidemia; N40.1 Benign prostatic hyperplasia with lower urinary tract symptoms; N13.8 Other obstructive and reflux uropathy; I25.10 Atherosclerotic heart disease of native coronary artery without angina pectoris; G20.A1 Parkinson's disease without dyskinesia, without mention of fluctuations; N52.8 Other male erectile dysfunction; K92.2 Gastrointestinal hemorrhage, unspecified; I69.351 Hemiplegia and hemiparesis following cerebral infarction affecting right dominant side; Z79.02 Long term (current) use of antithrombotics/antiplatelets; Z79.4 Long term (current) use of insulin; Z79.84 Long term (current) use of oral hypoglycemic drugs; Z79.899 Other long term (current) drug therapy; Z95.5 Presence of coronary angioplasty implant and graft | CPT/HCPCS: 99212 ==